=== PATIENT | male | born 1995 | race Caucasian/White ===

== ENCOUNTER 2016-08-06 20:39 | Emergency (ER) | payer OTHER ==
[~2016-08-06] VITALS: Ht 170.2 cm; Wt 87.1 kg
[~2016-08-06 20:39] MED LIST: APAP500 PO; IBUPROFEN 800800 M1 PO; NOHOMEMEDICATIONS; NORCO 5-325 TA1 EACH PO
[2016-08-06 21:51] VITALS: BP 130/76
[2016-08-06 22:30] LABS: HIV-1 P24 AG Nonreactive (Nonreactive)
[2016-08-08 21:06] LABS: HBsAG-EMPLOYEE EXPOSURE Negative (Negative); HCV AB-EMPLOYEE EXPOSURE <0.1 (0.0-0.9)
== END 2016-08-06 21:52 | disposition home or self-care (01) ==
LOC: ER 20:39
PROVIDERS: Nurse Practitioner Family
DX: S61.233A Puncture wound without foreign body of left middle finger without damage to nail, initial encounter (principal); F17.210 Nicotine dependence, cigarettes, uncomplicated; Z90.89 Acquired absence of other organs; Z88.8 Allergy status to other drugs, medicaments and biological substances; W46.1XXA Contact with contaminated hypodermic needle, initial encounter; Y93.89 Activity, other specified; Y92.89 Other specified places as the place of occurrence of the external cause; Y99.8 Other external cause status